=== PATIENT | male | born 1995 | race Caucasian/White ===

== ENCOUNTER 2025-03-29 08:35 | Emergency (ER) | payer SELFPAY ==
[2025-03-29] VITALS (12 sets, daily range): BP systolic 132–162; BP diastolic 85–105; PULSE 63–80; RESP 15–19; TEMP 37; O2SAT 97–100; BMI 22.7
--- NOTE | 2025-03-29 09:25 | ED.GENADULT ---
HPI - General Adult General Chief complaint: Anxiety Stated complaint: Chest pain-has hx of pvcs Time Seen by Provider: 03/29/25 08:43 History of Present Illness HPI narrative: This 29-year-old male comes in reporting some premature beats or palpitations and associated anxiety symptoms. He does not report any chest pain, nausea, vomiting, lightheadedness, shortness of breath, or exercise intolerance. He states that he did have a Zio patch several months ago which showed occasions of PVCs and PACs. Related Data Previous Rx's ?Medication ?Instructions ?Recorded propranolol 10 mg tablet 10 mg PO BID #60 tabs 03/29/25 Allergies Allergy/AdvReac Type Severity Reaction Status Date / Time No Known Drug Allergies Allergy Verified 03/29/25 08:44 Review of Systems Status of ROS: Reports: 10 or more systems reviewed and unremarkable except as noted in History and below Narrative: Constitutional: No fevers, no weight gain or loss. Eyes: No discharge. No vision changes. HENT: No congestion, no sore throat, no ear pain. Cardiovascular: No chest pain. Palpitations as described above. Respiratory: No shortness of breath, no wheezes, no cough. Gastrointestinal: No abdominal pain, no vomiting, no diarrhea. Genitourinary: No dysuria, no hematuria. Musculoskeletal: Normal range of motion. Skin: No rashes, no pruritis. Neurological: No dizziness, weakness, sensory change, speech change. Endo/Heme/Allergies: No bruising or bleeding. No polydipsia. Pysch: no suicidality, no anxiety, no insomnia. All other systems reviewed and are negative. Exam Narrative: Exam Narrative: Constitutional: Well-developed, well-nourished, no acute distress. HEENT: Normocephalic, atraumatic. Neck: Normal range of motion. Nontender. Supple. Heart: Regular. No murmurs. Normal rate. Intact distal pulses. Lungs: Clear to auscultation. No chest discomfort. No wheezes, rhonchi, or rales. Abdomen: Normal bowel sounds. Nontender. No rebound tenderness. Genitalia: Deferred. Back: No midline tenderness. Normal range of motion. Extremities: Normal range of motion. No injury. Skin: Intact. No rash. Warm. No erythema or pallor. Neurologic: No altered sensation. No weakness. Alert and oriented. Psychiatric: No suicidality. No anxiety or depression. No insomnia. Nursing notes and vitals signs are reviewed. Const: Vital Signs, click to edit/add: Vital Signs - 24 hr 03/29/25 08:39 03/29/25 08:51 03/29/25 08:52 Temperature 98.6 F Pulse Rate 78 70 Pulse Rate [Pulse Oximeter] 75 Respiratory Rate 16 16 15 Blood Pressure 143/94 H Blood Pressure [Ri ght Upper Arm] 162/105 H Pulse Oximetry 100 99 99 Oxygen Delivery Me thod Room Air Course Vital Signs Vital signs: Initial Vital Signs Temperature 98.6 F 03/29/25 08:39 Temperature Source Temporal Artery Scan 03/29/25 08:39 Pulse Rate 75 03/29/25 08:39 Respiratory Rate 16 03/29/25 08:39 Blood Pressure 162/105 H 03/29/25 08:39 Blood Pressure Mean 124 H 03/29/25 08:39 Blood Pressure Position Sitting 03/29/25 08:39 Pulse Oximetry 100 03/29/25 08:39 Oxygen Delivery Method Room Air 03/29/25 08:39 Vital Signs Temperature 98.6 F 03/29/25 08:39 Pulse Rate 75 03/29/25 08:39 Respiratory Rate 16 03/29/25 08:39 Blood Pressure 162/105 H 03/29/25 08:39 Pulse Oximetry 100 03/29/25 08:39 Oxygen Delivery Method Room Air 03/29/25 08:39 Temperature 98.6 F 03/29/25 08:39 Pulse Rate 70 03/29/25 08:52 Respiratory Rate 15 03/29/25 08:52 Blood Pressure 143/94 H 03/29/25 08:52 Pulse Oximetry 99 03/29/25 08:52 Oxygen Delivery Method Room Air 03/29/25 08:39 Medical Decision Making MDM Narrative Medical decision making narrative: This patient comes in reporting PVCs and PACs that he had clarified on a Zio patch that was done several months ago. He has associated anxiety symptoms related to this. I did obtain an EKG which shows normal sinus rhythm and watched on the monitor also seeing no abnormal or premature beats during his visit here. I did explain the physiology behind PVCs and PACs and how we understand and treat blood pressure. This was very reassuring to him. He did have a full workup recently including labs and there does not seem to be a need to repeat these studies at this time. I did provide a prescription for propranolol that can be used as needed if he is having anxiety or PVCs symptoms as this may benefit both. ECG Data Attestation: I personally reviewed and interpreted this ECG as follows: Interpretation: Normal sinus rhythm. Rate is 64 beats per minute. There are no ST or T-wave abnormalities. Discharge Plan Discharge Clinical Impression: Acute anxiety, Palpitations Patient Disposition: Home, Self-Care Condition: Stable Additional Instructions: Continue current plans. Use medication as needed and directed. Follow up with MD return if worsening symptoms occur. Prescriptions: New propranolol 10 mg tablet 10 mg PO BID Qty: 60 2RF Stand Alone Forms: [employer] Instructions
== END 2025-03-29 09:44 | disposition home or self-care (01) ==
LOC: ED 09:37
PROVIDERS: Emergency Provider Emergency Medicine Emergency Medical Services
DX: F41.9 Anxiety disorder, unspecified (principal); R00.2 Palpitations
CPT/HCPCS: 99283; 99284